=== PATIENT | female | born 1995 | race Caucasian/White ===

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

== ENCOUNTER → 2017-03-03 | Outpatient (REF) | payer OTHER ==
[~2017-03-03] MED LIST changes: -LEVO125T3 PO; +LEVO125T4 PO; -NAPR500T2 PO; +NAPR500T3 PO
== END ==
LOC: M LAB REF 21:02
PROVIDERS: ATTEND Physician Assistant
DX: R30.0 Dysuria (principal)

== ENCOUNTER → 2017-03-31 | Outpatient (CLI) | payer OTHER ==
--- NOTE | 2017-03-31 19:50 | REP ---
Clinical: Trauma. Injury. Technique: AP and lateral views of the left forearm. Findings: No acute fracture dislocation. No foreign body. Joint spaces are intact and normal. Impression: No acute fracture or dislocation. Signed by Michael Bonner MD 03/31/2017 07:41 P
== END ==
LOC: M LRY 18:48
PROVIDERS: ATTEND Nurse Practitioner Family
DX: S49.92XA Unspecified injury of left shoulder and upper arm, initial encounter (principal); W18.30XA Fall on same level, unspecified, initial encounter; Y92.009 Unspecified place in unspecified non-institutional (private) residence as the place of occurrence of the external cause

== ENCOUNTER → 2017-08-27 | Outpatient (REF) | payer OTHER | LOC: M LAB REF 16:32 | DX: R30.0 Dysuria (principal) ==

== ENCOUNTER → 2017-10-19 | Outpatient (CLI) | payer OTHER | LOC: M LRY 20:33 | DX: J40 Bronchitis, not specified as acute or chronic (principal); R07.89 Other chest pain | CPT/HCPCS: 71046 ==

== ENCOUNTER → 2018-02-12 | Outpatient (REF) | payer OTHER | LOC: M SFHCLERA 18:59 | DX: N89.8 Other specified noninflammatory disorders of vagina (principal) | CPT/HCPCS: 87086 ==

== ENCOUNTER → 2018-02-26 | Outpatient (REF) | payer OTHER | LOC: M LAB REF 17:13 | DX: N30.01 Acute cystitis with hematuria (principal) | CPT/HCPCS: 87186 ==

== ENCOUNTER → 2019-04-15 | Outpatient (REF) | payer OTHER ==
[~2019-04-15] MED LIST changes: +NAPR-885 PO; -NAPR500T3 PO
[2019-04-15 16:25] LABS: ALBUMIN 3.8 GM/DL (3.2-5.2); ALT/SGPT 16 U/L (12-78); BILIRUBIN,TOTAL 0.9 MG/DL (0.2-1.0); BLOOD UREA NITROGEN 18 MG/DL (7-18); CALCIUM LEVEL 9.3 MG/DL (8.5-10.1); CARBON DIOXIDE LEVEL 30 MEQ/L (21-32); CHLORIDE LEVEL 101 MEQ/L (98-107); CREATININE FOR GFR 0.81 MG/DL (0.55-1.30); GLOMERULAR FILTRATION RATE > 60.0 (>60); GLUCOSE, FASTING 281 MG/DL (70-100); SODIUM LEVEL 138 MEQ/L (136-145)
[2019-04-15 16:34] LABS: BASO % 0.5 % (0.0-1.0); EOS # 0.1 10^3/uL (0.0-0.5); EOS % 1.4 % (0.0-3.0); HEMATOCRIT 39.7 % (36.0-47.0); HEMOGLOBIN 13.4 g/dl (12.0-15.5); LYMPH # 1.9 10^3/uL (1.5-5.0); LYMPH % 28.7 % (24.0-44.0); MEAN CORPUSCULAR HEMOGLOBIN 29.7 pg (27.0-33.0); MEAN CORPUSCULAR HGB CONC 33.8 g/dl (32.0-36.5); MONO # 0.5 10^3/uL (0.0-0.8); MONO % 6.8 % (0.0-5.0); NEUTROPHILS # 4.1 10^3/uL (1.5-8.5); NEUTROPHILS % 62.4 % (36.0-66.0); PLATELET COUNT, AUTOMATED 305 10^3/uL (150-450); RED BLOOD COUNT 4.51 10^6/uL (4.00-5.40); WHITE BLOOD COUNT 6.6 10^3/uL (4.0-10.0)
[2019-04-15 16:53] LABS: HEMOGLOBIN A1c 13.4 %
[2019-04-15 16:55] LABS: MAU/CREAT RATIO 72.5 MCG/MG (0.0-30.0)
== END ==
LOC: M LABDRAW1 15:42
PROVIDERS: ATTEND Family Medicine
DX: E10.9 Type 1 diabetes mellitus without complications (principal)

== ENCOUNTER → 2019-06-28 | Outpatient (REF) | payer OTHER ==
[2019-06-28 22:35] LABS: CHLAMYDIA DNA AMPLIFICATION NEGATIVE (NEGATIVE); GC DNA AMPLIFICATION NEGATIVE (NEGATIVE)
== END ==
LOC: M SFHCLERA 16:00
PROVIDERS: ATTEND Nurse Practitioner Family
DX: N89.8 Other specified noninflammatory disorders of vagina (principal)
CPT/HCPCS: 81002; 81025; 82948; 87070; 87077; 87086; 87661; G0463